=== PATIENT | male | born 1990 | race Caucasian/White ===

== ENCOUNTER 2020-11-18 17:41 | Emergency (ER) | payer OTHER, MEDICAID ==
--- NOTE | 2020-11-18 19:20 | EDM.PDOC ---
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 He is concerned that he might be getting infection this is digit #3 he has now become erythematous he does have a encompassing that digit dorsal surface of hand - Related Data Allergies Allergy/AdvReac Type Severity Reaction Status Date / Time No Known Allergies Allergy Verified 11/18/20 18:56 Home Meds: Home Meds NK [No Known Home Meds] 11/18/20 [History] Past Medical History HEENT History: Reports: Impaired Vision Musculoskeletal History: Reports: Fracture - Infectious Disease History Infectious Disease History: Reports: Chicken Pox - Past Surgical History Respiratory Surgical History: Reports: Other (See Below) Other Respiratory Surgeries/Procedures: pneumothoracic Social & Family History - Tobacco Use Tobacco Use Status *Q: Current Some Day Tobacco User Years of Tobacco use: 10 Packs/Tins Daily: 0.2 - Recreational Drug Use Recreational Drug Use: No ED ROS GENERAL - Review of Systems Review Of Systems: See Below Constitutional: Reports: No Symptoms Skin: Reports: Rash, Wound, Change in Color ED EXAM, GENERAL - Physical Exam Exam: See Below Free Text/Narrative:: Examination of the right hand do appreciate some edema over the dorsal surface of the hand there is some erythema over digit #3 he has full range of motion of all digits the laceration has been repaired is clean dry and intact radial pulses +2 Exam Limited By: No Limitations General Appearance: Alert, WD/WN, No Apparent Distress Course - Vital Signs Last Recorded V/S: Last Vital Signs Temp 97.8 F 11/18/20 19:02 Pulse 97 11/18/20 19:02 Resp 18 11/18/20 19:02 BP 142/87 H 11/18/20 19:02 Pulse Ox 98 11/18/20 19:02 Departure - Departure Time of Disposition: 19:22 Disposition: Home, Self-Care 01 Condition: Fair Clinical Impression: Cellulitis Qualifiers: Site of cellulitis: extremity Site of cellulitis of extremity: upper extremity Laterality: right Qualified Code(s): L03.113 - Cellulitis of right upper limb - Discharge Information Instructions: Cellulitis, Adult, [id number] Referrals: PCP,None [Primary Care Provider] - Additional Instructions: Take full course of antibiotics, please followup with your primary care provider in 5-7 days if not better, please call return to the emergency department with worsening of symptoms. Sepsis Event Note (ED) - Evaluation Sepsis Screening Result: No Definite Risk - Focused Exam Vital Signs: Vital Signs Temp Pulse Resp BP Pulse Ox 11/18/20 19:02 97.8 F 97 18 142/87 H 98 - Assessment/Plan Plan: Assessment Acuity = acute Site and laterality = local cellulitis Etiology = probable bacterial cause Manifestations = none Location of injury = Home Lab values = none Plan Elected to treat empirically Keflex 500 mg p.o. 3 times daily x7 days follow-up primary care in 5 to 7 days if not better This note was dictated using [employer] voice recognition software please call with any questions on syntax or grammar.
== END 2020-11-18 19:53 | disposition home or self-care (01) ==
LOC: JP.ED 17:41
DX: L03.113 Cellulitis of right upper limb (principal); Z72.0 Tobacco use
CPT/HCPCS: 99282

== ENCOUNTER 2020-11-20 17:21 | Emergency (ER) | payer OTHER, MEDICAID ==
--- NOTE | 2020-11-20 18:30 | EDM.PDOC ---
ED HPI GENERAL MEDICAL PROBLEM - General Chief Complaint: Wound Recheck Stated Complaint: FINGER INFECTION Time Seen by Provider: 11/20/20 18:21 Source of Information: Reports: Patient History Limitations: Reports: No Limitations - History of Present Illness INITIAL COMMENTS - FREE TEXT/NARRATIVE: Jose Youssef is a 30-year-old male presenting to the ED for wound recheck. 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 The injury was repaired by one of my colleagues several days ago and the patient was seen yesterday for possible infection in the wound. He was started on cephalexin 500 mg 3 times daily. He comes back in today because the wound has turned dark on the distal border around the area where the stitch had come out and the wound had opened up. This area is tender, however, the remainder of the laceration is closed and nontender. There is some bruising on the dorsal hand from the initial injury. There is minimal swelling. Patient is concerned because of the darkness around the distal wound. Right Hand Pain Score (Numeric/FACES): 4 - Related Data Allergies Allergy/AdvReac Type Severity Reaction Status Date / Time No Known Allergies Allergy Verified 11/20/20 18:05 Home Meds: Home Meds cephALEXin [Cephalexin] 500 mg PO TID 11/20/20 [History] Past Medical History HEENT History: Reports: Impaired Vision Respiratory History: Reports: Pneumothorax Other Respiratory History: chest tube Musculoskeletal History: Reports: Fracture - Infectious Disease History Infectious Disease History: Reports: Chicken Pox, Mononucleosis - Past Surgical History Respiratory Surgical History: Reports: Other (See Below) Other Respiratory Surgeries/Procedures: pneumothoracic Social & Family History - Tobacco Use Tobacco Use Status *Q: Current Every Day Tobacco User Years of Tobacco use: 10 Packs/Tins Daily: 0.2 ED ROS GENERAL - Review of Systems Review Of Systems: See Below Skin: Reports: Wound (Laceration on the dorsal left middle finger with dehiscence of the distal aspect of the wound.) ED EXAM, SKIN/RASH Exam: See Below Exam Limited By: No Limitations General Appearance: Alert, No Apparent Distress Skin: Wound/Incision (Laceration on the dorsal left middle finger with dehiscence of the distal aspect of the wound surrounded by dark brown skin consistent with necrotic dermis.) Location, Skin: Upper Extremity, Left Characteristics: Linear Associated features: Warmth, Tenderness, Inflammation Lymphatic: No Adenopathy Course - Vital Signs Last Recorded V/S: Last Vital Signs Temp 36.6 C 11/20/20 18:04 Pulse 67 11/20/20 18:04 Resp 20 11/20/20 18:04 BP 126/76 11/20/20 18:04 Pulse Ox 100 11/20/20 18:04 Departure - Departure Time of Disposition: 18:35 Disposition: Home, Self-Care 01 Clinical Impression: Encounter for re-check of laceration wound - Discharge Information Instructions: Wound Dehiscence, [id number], Wound Care, Adult Referrals: PCP,None [Primary Care Provider] - Forms: ED Department Discharge Care Plan Goals: Continue to use the cephalexin 500 mg 3 times daily. Continue to apply a light coating of bacitracin or triple antibiotic ointment to the area around the wound. Keep the wound dry as much as possible. Return to the ED if there is any extension of the brown is going up the finger or you develop fever or chills, increased redness, or increased pain. Sepsis Event Note (ED) - Evaluation Sepsis Screening Result: No Definite Risk - Focused Exam Vital Signs: Vital Signs Temp Pulse Resp BP Pulse Ox 11/20/20 18:04 36.6 C 67 20 126/76 100 11/20/20 18:00 36.6 C 67 20 126/76 100 - Problem List & Annotations (1) Encounter for re-check of laceration wound SNOMED Code(s): 649126136, [id number], [id number] Code(s): WXC8201 - Status: Acute Priority: Low Current Visit: Yes - Problem List Review Problem List Initiated/Reviewed/Updated: Yes
== END 2020-11-20 18:57 | disposition home or self-care (01) ==
LOC: JP.ED 17:21
DX: S61.213D Laceration without foreign body of left middle finger without damage to nail, subsequent encounter (principal); Z48.01 Encounter for change or removal of surgical wound dressing; Z72.0 Tobacco use
CPT/HCPCS: 99282

== ENCOUNTER 2025-03-06 14:22 | Emergency (ER) | payer OTHER, MEDICAID ==
[2025-03-06] MEDS ORDERED: Naloxone 0.4 MG/ML SDV IVPUSH PRN (14:31)
[2025-03-06] MEDS ORDERED: Ondansetron 4 MG/2 ML SDV IVPUSH PRN (14:31)
[2025-03-06 14:40] LABS: BASOPHILS ABSOLUTE AUTO 0.07 K/uL (0.00-0.10); BASOPHILS PERCENT AUTO 0.8 % (0.1-1.3); EOSINOPHILS ABSOLUTE AUTO 0.22 K/uL (0.00-0.40); EOSINOPHILS PERCENT AUTO 2.4 % (0.0-5.4); IMMATURE GRAN ABSOLUTE AUTO 0.03 K/uL (0.00-0.23); IMMATURE GRAN PERCENT AUTO 0.3 % (0.0-0.7); LYMPHOCYTES ABSOLUTE AUTO 2.04 K/uL (0.8-3.3); LYMPHOCYTES PERCENT AUTO 22.4 % (11.4-47.7); MONOCYTES ABSOLUTE AUTO 0.90 K/uL (0.20-0.90); MONOCYTES PERCENT AUTO 9.9 % (3.3-12.6); NEUTROPHILS ABSOLUTE AUTO 5.86 K/uL (1.0-7.6); NEUTROPHILS PERCENT AUTO 64.2 % (40.0-78.1); PLATELET COUNT,PLT 321 K/uL (130-375); RED BLOOD CELL COUNT 4.48 M/uL (4.14-5.76); WHITE BLOOD CELL COUNT,WBC 9.1 K/uL (3.2-11.0)
[2025-03-06 14:59] LABS: A/G RATIO 1.4 (1.2-2.2); ALANINE AMINOTRANSFERASE,ALT 20 U/L (12-78); ASPARTATE AMNIOTRANSFERASE,AST 15 U/L (15-37); BILIRUBIN TOTAL 0.3 mg/dL (0.2-1.0); BLOOD UREA NITROGEN,BUN 9 mg/dL (7-18); CARBON DIOXIDE,CO2 28 mmol/L (21-32); CHLORIDE,CL 104 mmol/L (100-108); CREATININE 0.7 mg/dL (0.8-1.3); ESTIMATED GFR 125 mL/min (>60); GLUCOSE RANDOM 114 mg/dL (74-106); POTASSIUM,K 3.9 mmol/L (3.6-5.2); PROTEIN TOTAL,TP 6.7 g/dL (6.4-8.2); SODIUM,NA 139 mmol/L (140-148)
[2025-03-06] MEDS: Diphtheria,Pertussis(Acell),Tetanus Vaccine 0.5 ML Syringe IM ONE (17:49)
== END 2025-03-06 19:22 | disposition home or self-care (01) ==
LOC: JP.ED 14:28
DX: S06.0X0A Concussion without loss of consciousness, initial encounter (principal); S80.211A Abrasion, right knee, initial encounter; V89.2XXA Person injured in unspecified motor-vehicle accident, traffic, initial encounter; Z79.899 Other long term (current) drug therapy
CPT/HCPCS: 36415; 70450; 70450-26; 70551; 73562-26-RT; 73562-RT; 73610-26-RT; 73610-RT; 73630-26-RT; 73630-RT; 73700-RT; 76377; 80053; 80307; 82550; 83605; 85025; 99284